=== PATIENT | male | born 1960 | race Caucasian/White ===

== ENCOUNTER → 2018-01-30 | Outpatient (CLI) | payer BC ==
[~2018-01-30] MED LIST: 'PARAFON FORTE500 M1 PO; ASPIRIN ADULT L81 M1 PO; FLOVENT DI100 MCG/Ac IH; LIPITOR40 MG PO; NAPROSYN500 MG PO; PROTONIX20 MG PO; VENTOLIN2 MG TD
[2018-01-30 10:36] LABS: CHOLESTEROL 122 mg/dL (<200); HDL CHOLESTEROL 51 mg/dl (40-60); LDL CHOLESTEROL 56 mg/dL (9-159); SGOT/AST 19 IU/L (3-35); SGPT/ALT 45 U/L (12-78); TRIGLYCERIDES 73 mg/dl (<150); VLDL CHOLESTEROL 15 mg/dL (6-40)
== END | disposition home or self-care (01) ==
LOC: LAB 09:57
PROVIDERS: Internal Medicine Interventional Cardiology
DX: E78.2 Mixed hyperlipidemia (principal)

== ENCOUNTER → 2024-01-22 | Outpatient (CLI) | payer OTHER ==
[2024-01-22 12:19] LABS: BASO % 0.2 % (0.0-1.0); EOS # 0.1 10*3/uL (0.0-0.4); HEMATOCRIT 48.6 % (42.0-52.0); LYMPH # 0.8 10*3/uL (1.3-4.4); LYMPH % 19.7 % (27.0-41.0); MEAN CELL VOLUME 88.8 fl (80.0-94.0); MEAN CORPUSCULAR HGB 28.9 pg (27.0-31.0); MEAN CORPUSCULAR HGB CONC 32.5 g/dl (33.0-37.0); MEAN PLATELET VOLUME 10.1 fl (9.6-12.3); MONO # 0.4 10*3/uL (0.1-1.0); MONO % 8.8 % (3.0-9.0); NEUT # 2.8 10*3/uL (2.3-7.9); NEUT % 69.1 % (47.0-73.0); PLATELET COUNT AUTOMATED 190 10*3/uL (130-400); RED BLOOD COUNT 5.47 10*6/uL (4.50-5.90); RED CELL DISTRI WIDTH 13.1 % (0-14.5); WHITE BLOOD COUNT 4.1 10*3/uL (4.8-10.8)
[2024-01-22 12:54] LABS: ALKALINE PHOSPHATASE 93 U/L (46-116); BUN 6 mg/dl (9-23); CHLORIDE 106 mmol/L (98-107); SGPT/ALT 47 U/L (5-49); TOTAL PROTEIN 6.6 gm/dL (6.0-8.0)
== END ==
LOC: LAB 11:57
PROVIDERS: ATTEND Internal Medicine Gastroenterology
DX: K90.0 Celiac disease (principal)